=== PATIENT | female | born 1960 | race African-American/Black ===

== ENCOUNTER → 2016-06-26 | Day surgery (SDC) | payer OTHER ==
[~2016-06-26] MED LIST: KETOROLAC TROMETHAMINE 30 MG/ML (IVP) VIAL IV PUSH ONE; LACTATED RINGER'S 1000 ML INJ 1,000 ML ONE; MIDAZOLAM HCL 2 MG/2 ML VIAL ONE; ONDANSETRON HCL 4 MG/2 ML VIAL IV PUSH ONE; PROPOFOL 200 MG/20 ML AMP IV ONE; VITATAB25 PO; ceFAZolin INJ 1,000 MG VIAL ONE
--- NOTE | 2016-06-26 15:21 | MP ---
cc: KEITH FERRER DATE OF SURGERY: 06/26/2016 PREOPERATIVE DIAGNOSIS Postmenopausal bleeding. POSTOPERATIVE DIAGNOSIS Postmenopausal bleeding along with large endometrial polyp. PROCEDURE Hysteroscopy, D&C, removal of endometrial polyp. SURGEON Keith Ferrer MD ANESTHESIA General. ESTIMATED BLOOD LOSS 30 ccs. COMPLICATIONS None. FINDINGS On hysteroscopy the patient was noted to have a large benign-appearing endometrial polyp that filled the entire endometrial cavity. On its removal it measured approximately 1.5 x 3 cm in length. The remainder of the endometrial cavity appeared atrophic and benign. DESCRIPTION OF PROCEDURE The patient was brought to the operating room and following general anesthesia was placed in dorsal lithotomy position. Her vagina, abdomen and perineum were prepped and draped. The cervix was grasped with a single-tooth tenaculum and dilated to allow passage of the 5 mm hysteroscope. The findings were as noted above. The hysteroscope was removed and we used Claros dilators to further dilate the cervix to allow passage of a ring clamp. The endometrial polyp was grasped and first a small piece was torn off. We then were able to more fully grasp it on the second try and then in a twisting motion was able to remove it intact. It did appear benign. Hysteroscopy was performed after this to ensure removal and this confirmed removal. D&C of the remaining endometrial cavity wall was performed. The specimen was sent separately. Bleeding was scant at that point so all instruments were removed. The patient was taken to the recovery room in good condition with all counts correct. She will be discharged home when stable and alert to be followed up in 1 week in our office. Her discharge medication is Percocet. She is given instructions on physical activity and instructed to resume regular diet as tolerated. Keith Ferrer MD TGS/TLL /8:25 AM /3:16 PM
== END | disposition home or self-care (01) ==
LOC: ESDC 07:04
PROVIDERS: ATTEND Obstetrics & Gynecology
DX: N95.0 Postmenopausal bleeding (principal); N84.0 Polyp of corpus uteri
CPT/HCPCS: 00952; 58558; 88305; J0690; J1885; J2250; J2405; J3010; J7120